=== PATIENT | female | born 1965 | race Two or more races ===

== ENCOUNTER 2023-12-31 06:03 | Day surgery (SDC) | payer OTHER ==
[2023-12-25 09:36] LABS: HEMATOCRIT 40.7 % (36.0-45.00); HEMOGLOBIN 13.5 g/dL (12.0-15.00); MEAN CELL VOLUME 81.8 fL (80.00-100.00); MEAN CORPUSCULAR HEMOGLOBIN 27.2 pg (27.00-32.0); MEAN CORPUSCULAR HGB CONC 33.3 g/dl (32.0-36.0); PLATELET COUNT 289 K/uL (150-450); RED BLOOD COUNT 4.98 M/uL (4.00-6.00); RED CELL DISTRIBUTION WIDTH 16.1 % (11.5-14.5)
[2023-12-25 09:59] LABS: INR 1.01
[2023-12-25 10:14] LABS: PH,URINE 6.5 (5.0-8.0); URINE APPEARANCE Clear; URINE BILIRRUBIN Negative (NEGATIVE); URINE BLOOD Negative; URINE COLOR Yellow; URINE GLUCOSE Negative (NEGATIVE); URINE KETONE 15 (NEGATIVE); URINE LEUKOCYTE Negative; URINE NITRATE Negative; URINE PROTEIN Negative (NEGATIVE); URINE UROBILINOGEN 0.2 E.U./dl
[2023-12-25 10:32] LABS: URINE EPITHELIAL CELLS 1.2 uL (0.0-38.8); URINE RBC 1.3 uL (0.0-20.8); URINE WBC 0.3 uL (0.0-23.2)
[2023-12-25 10:36] LABS: ALBUMIN 3.7 gm/dL (3.4-5.0); BILIRUBIN TOTAL 0.28 mg/dL (0.3-1.2); CALCIUM 8.7 mg/dL (8.5-10.1); CREATININE SERUM 0.51 mg/dL (0.55-1.02); GFR 123.01; GLOBULINA 3.7 G/DL (2.4-3.5); POTASSIUM 4.08 mEq/L (3.5-5.1); TOTAL PROTEIN 7.4 gm/dL (6.4-8.2); TSH 1.35 uIU/mL (0.358-3.74)
[2023-12-31] MEDS ORDERED: CHLORHEXIDINE GLUCONATE 120 ML BOTTLE TOP ONE (08:15)
[2023-12-31] MEDS ORDERED: CEFOXITIN SODIUM 2,000 MG VIAL IV ONE (08:15)
[2023-12-31] MEDS ORDERED: POVIDONE-IODINE 118 ML BOTT TOP ONE (08:15)
[2023-12-31] MEDS ORDERED: NAPR500T14 PO (10:12)
[2023-12-31] MEDS ORDERED: MORGIDOX100 MG PO (10:12)
[2023-12-31] MEDS ORDERED: MORPHINE SULFATE 4 MG/ML VIAL IV PRN (10:15)
[2023-12-31] MEDS ORDERED: PROMETHAZINE HCL 50 MG/ML AMPUL IM ONE (10:15)
== END 2023-12-31 12:40 | disposition home or self-care (01) ==
LOC: CIR.AMB 06:03
PROVIDERS: ATTEND Obstetrics & Gynecology
DX: D25.0 Submucous leiomyoma of uterus (principal); N84.0 Polyp of corpus uteri; N95.0 Postmenopausal bleeding